=== PATIENT | female | born 1985 | race American Indian/Alaskan Native ===

== ENCOUNTER 2019-02-13 13:48 | Outpatient (CLI) | payer BC ==
--- NOTE | 2019-02-13 16:04 | Mammography Report ---
LEFT DIGITAL DIAGNOSTIC CLINICAL: For clip placement after ultrasound guided needle biopsy. COMPARISON: [facility] 01/29/2019 FINDINGS: A biopsy clip is identified in the upper outer quadrant [place] E 18 cm from the nipple and c orrelates with the biopsied lymph node. The breast is diffusely increased in density with marked diff use skin thickening. At least 2 axillary lymph nodes are partially included on the images. No other m ass. A few clustered calcifications in the upper breast with nonspecific morphology. IMPRESSION: Concordant clip deployment. Diffuse edema and skin thickening of the breast suggesting ei ther severe lymphedema or inflammatory breast carcinoma. Signer Name: Myke Alcantara MD Signed: 02/13/2019 4:00 PM Workstation Name: [id number]
--- NOTE | 2019-02-13 16:16 | Ultrasound Report ---
COMPLETE LEFT BREAST ULTRASOUND HISTORY: Left axillary lymphadenopathy and left breast enlargement. Abnormal mammogram. COMPARISON: [facility] FINDINGS: Complete sonographic evaluation including imaging of the four quadrants and subareolar aspe ct of the left breast was performed. No mass, cyst or shadowing. A grossly abnormal and enlarged lymp h node in the axillary tail at 1:00 14 cm from the nipple measures 3.4 x 2.2 x 1.7 cm. It has a small amount of central fat and pronounced cortical thickening measuring 16 mm maximum. Several abnormal l eft axillary lymph nodes have no central fat. IMPRESSION Left intramammary and left axillary lymphadenopathy which are suspicious for malignancy. No other mas s of the left breast. Recommend ultrasound-guided needle biopsy of the largest lymph node. BIRADS 4: Suspicious abnormality. Signer Name: Myke Alcantara MD Signed: 02/13/2019 4:12 PM Workstation Name: [id number]
--- NOTE | 2019-02-13 16:20 | Ultrasound Report ---
ULTRASOUND-GUIDED NEEDLE CORE BIOPSY LEFT BREAST WITH CLIP PLACEMENT CLINICAL: A grossly abnormal axillary tail lymph node, left breast enlargement and edema. FINDINGS: The procedure was explained to the patient and informed consent was obtained. Ultrasound demonstrated the previously identified 3.6 cm axillary tail lymph node with pronounced cor tical thickening. I marked the breast with a felt tip marker and a timeout was called. The skin was prepped with Chloro -Prep and anesthetized with 1% lidocaine. Needle core biopsy was performed through small dermatotomy using ultrasound guidance, 2% lidocaine wi th epinephrine for deep anesthesia and a 14-gauge Achieve biopsy device. 2 cores were obtained and pl aced in formalin. A clip was deployed within the lymph node. The patient tolerated the procedure well and there were no apparent convocations. Hemostasis was achieved with minimal effort and a sterile d ressing was applied. A post procedure mammogram demonstrated concordant clip deployment. She left the department in good c ondition and was given instructions for wound care and follow-up. IMPRESSION: Uncomplicated ultrasound guided needle core biopsy with clip placement left breast. Signer Name: Myke Alcantara MD Signed: 02/13/2019 4:16 PM Workstation Name: [id number]
== END 2019-02-13 13:49 | disposition home or self-care (01) ==
LOC: SPVWC 13:48
PROVIDERS: ATTEND Surgery
DX: C77.9 Secondary and unspecified malignant neoplasm of lymph node, unspecified (principal)
CPT/HCPCS: 38505; 76942; 88305; 88341; 88342

== ENCOUNTER 2019-02-21 08:25 | Outpatient (CLI) | payer BC | END 2019-02-21 08:26 | disposition home or self-care (01) | LOC: LABHHL 08:25 | PROVIDERS: ATTEND Surgery | DX: D48.7 Neoplasm of uncertain behavior of other specified sites (principal) | CPT/HCPCS: 88305; 88341; 88342 ==

== ENCOUNTER 2019-02-27 11:39 | Day surgery (SDC) | payer BC ==
[~2019-02-27 11:39] MED LIST: ANCEF/STERILE WATER 2 GM/20 ML 2 GM/20 ML SYRINGE IV NR; LACTATED RINGERS 1,000 ML IV SCH; NEURONTIN PO SCH; TYLENOL PO ONE
[2019-02-27 12:33] LABS: Eosinophils # (Auto) 0.1 K/mm3 (0.0-0.4); Eosinophils % (Auto) 0.9 % (0.0-4.3); Mean Corpuscular HGB Conc 35 % (30-34); Mean Corpuscular Volume 71 fl (79-97); Monocytes % (Auto) 8.8 % (0.0-7.3); Red Blood Count 2.33 M/mm3 (3.65-5.03)
[2019-02-27] MEDS ORDERED: SUBLIMAZE IV PRN (12:34)
--- NOTE | 2019-02-27 12:35 | Anesthesia Day of Surgery ---
Anesthesia Day of Surgery - Day of Surgery Patient Examined: Yes Patient H&P Reviewed: Yes Patient is NPO: Yes
--- NOTE | 2019-02-27 12:35 | Anesthesia Consultation ---
Anesthesia Consult and Med Hx Date of service: 02/27/19 - Airway Anesthetic Teeth Evaluation: Good ROM Head & Neck: Adequate Mental/Hyoid Distance: Adequate Mallampati Class: Class III Intubation Access Assessment: Possibly Difficult - Pulmonary Exam CTA: Yes - Cardiac Exam Cardiac Exam: RRR - Pre-Operative Health Status ASA Pre-Surgery Classification: ASA2 Proposed Anesthetic Plan: General - Pulmonary Hx Smoking: No Hx Respiratory Symptoms: No Hx Sleep Apnea: No (MEDHAT PRE SCREEN LOW RISK) - Cardiovascular System Hx Hypertension: No Hx Heart Attack/AMI: No - Central Nervous System CVA: No - Gastrointestinal Hx Gastroesophageal Reflux Disease: No - Endocrine Hx Renal Disease: No Hx Liver Disease: No Hx Insulin Dependent Diabetes: No Hx Non-Insulin Dependent Diabetes: No Hx Thyroid Disease: No - Hematic Hx Anemia: Yes - Other Systems Hx Cancer: Yes (Breast Ca; not yet on chemo)
[2019-02-27 12:40] LABS: Hematocrit 16.4 % (30.3-42.9); Hemoglobin 5.7 gm/dl (10.1-14.3); Platelet Count 68 K/mm3 (140-440); Red Cell Distribution Width 32.8 % (13.2-15.2)
[2019-02-27] MEDS ORDERED: NACL 0.9% 500 ML 500 ML IV ONE (12:48)
[2019-02-27] MEDS ORDERED: VERSED IV NR (13:00)
[2019-02-27] MEDS ORDERED: TYLENOL ONE (13:15)
[2019-02-27] MEDS ORDERED: NACL 0.9% 250ML 250 ML ONE (13:18)
[2019-02-27] MEDS ORDERED: HEPARIN 10,000 UNITS/10 ML ONE (13:18)
[2019-02-27] MEDS ORDERED: MARCAINE-EPI/PF 0.5%-1:200,000 INFILTRATI ONE (13:18)
[2019-02-27] MEDS ORDERED: XYLOCAINE 1% 20 mL ONE (13:18)
--- NOTE | 2019-02-27 13:30 | Short Stay Summary ---
Short Stay Documentation Date of service: 02/27/19 - History H&P: obtained from office - Allergies and Medications Current Medications: Allergies No Known Allergies Allergy (Verified 02/26/19 16:36) Home Medications Medication Instructions Recorded Confirmed Last Taken Type Ibuprofen [Motrin Ib] 200 mg PO PRN PRN 02/22/19 02/22/19 Unknown History Active Medications Celecoxib (Celebrex) 200 mg PO PREOP NR Stop: 02/27/19 23:59 Last Admin: 02/27/19 13:10 Dose: 200 mg Documented by: Fentanyl (Sublimaze) 50 mcg IV Q5MIN PRN PRN Reason: Pain , Severe (7-10) Gabapentin (Neurontin) 300 mg PO PREOP NIKIA Last Admin: 02/27/19 13:11 Dose: 300 mg Documented by: Lactated Ringer's (Lactated Ringers) 1,000 mls @ 100 mls/hr IV DIRECT NIKIA Last Admin: 02/27/19 13:10 Dose: 100 mls/hr Documented by: Cefazolin Sodium (Ancef/Sterile Water 2 Gm/20 Ml) 2 gm in 20 mls @ 80 mls/hr IV PREOP NR; Protocol Stop: 02/27/19 23:59 Midazolam HCl (Versed) 2 mg IV PREOP NR Stop: 02/27/19 23:59 - Physical exam General appearance: no acute distress Integumentary: no rash, no growths, no abnormal pigmentation HEENT: Atraumatic Lungs: Normal air movement Neurological: Normal speech - Brief post op/procedure progress note Date of procedure: 02/27/19 (dictation:[id number]) Pre-op diagnosis: left breast cancer Post-op diagnosis: same Procedure: US guided port placement IVF 400cc crystalloid 2 u PRBC min EBL Anesthesia: GETA Findings: normal anatomy Surgeon: REA THOMPSON Estimated blood loss: minimal Pathology: none Condition: stable - Hospital course Hospital course: uneventful. No reactions after blood transfusion in OR. Tachycardia resolved after transfusion. - Disposition Condition at discharge: Stable Disposition: DC-01 TO HOME OR SELFCARE Short Stay Discharge Plan Wound: open to air, keep clean and dry Additional Instructions: Post Operative Instructions No driving until cleared by surgeon. May shower tomorrow. Pat dry the wound or wounds. After surgery, start with a light diet. Consider having a liquid diet first. If you do well, you can advance to a regular diet as you feel comfortable. Apply an ice pack to the wound or wounds for 10-20 minutes at a time. Do this at least 4-5 times a day. You can do it more if he would like. Alternate the use of ibuprofen and Tylenol for the first 2 days. I want you to take these on a scheduled basis. Take 600 mg of ibuprofen every 6 hours. Take 500 mg of Tylenol every 6 hours. You should alternate these 2 medicines. In other words, beginning with the ibuprofen. After 3 hours, take the Tylenol. Keep alternating the 2 drugs every 3 hours. Do this on a scheduled basis for the first 2 days. After that, you can take them as needed. It is very important that you use the prescription pain medicine only for very severe pain. Do not take the prescription medicine before you try using the ibuprofen and Tylenol. We will call you in a couple of days to see how youre doing. If you have any questions or concerns, always feel free to call the clinic at any time. Follow up with: TEO PINA MD [Primary Care Provider] - 7 Days Forms: Outpatient [facility] Work/School Release Form Prescriptions: HYDROcodone/APAP 5-325 [[place] 5/325] 1 each PO Q6HR PRN #10 tablet PRN Reason: Pain , Severe (7-10)
[2019-02-27] MEDS ORDERED: SUBLIMAZE ONE (13:59)
[2019-02-27] MEDS ORDERED: DECADRON ONE (13:59)
[2019-02-27] MEDS ORDERED: ZOFRAN ONE (13:59)
[2019-02-27] MEDS ORDERED: ROBINUL ONE (13:59)
[2019-02-27] MEDS ORDERED: DIPRIVAN 10 MG/ML IV ONE (13:59)
[2019-02-27] MEDS ORDERED: XYLOCAINE MPF 2% ONE (13:59)
[2019-02-27] MEDS ORDERED: QUELICIN ONE (14:01)
[2019-02-27 14:33] LABS: Band Neutrophils # (Manual) 0.2 K/mm3; Basophils % (Manual) 0 % (0.0-1.8); Eosinophils % (Manual) 0 % (0.0-4.3); Hypochromasia 1+; Total Cells Counted 100
[2019-02-27 14:34] LABS: Anisocytosis 2+; Schistocytes 1+
[2019-02-27 14:38] LABS: Platelet Estimate Consistent w Auto
[2019-02-27] MEDS ORDERED: MARCAINE-EPI/PF 0.25%-1:200,000 INFILTRATI ONE (15:53)
[2019-02-27] MEDS ORDERED: XYLOCAINE 1% 20 mL INFILTRATI ONE (15:53)
[2019-02-27] MEDS ORDERED: KCL 10MEQ/100ML 0 MEQ/0 ML BAG IV ONE (16:08)
[2019-02-27] MEDS ORDERED: CALCIUM GLUCONATE IV ONE (16:11)
[2019-02-27] MEDS ORDERED: CALCIUM CHLORIDE IV ONE ×2 (16:15→16:21)
--- NOTE | 2019-02-27 16:58 | Fluoroscopy Report ---
FL central venous dev plct INDICATION / CLINICAL INFORMATION: POOR VENOUS ACCESS. COMPARISON: None available. FINDINGS: An AP view of the chest reveals a right jugular Port-A-Cath with the tip overlying the upper right at rium. There is no evidence of pneumothorax. The heart is enlarged. The lungs are clear. There is a le ft cervical rib. Fluoroscopy time: 20 seconds. Fluoroscopic images: 2. IMPRESSION: New right jugular Port-A-Cath with the tip overlying the right atrium. No evidence of pne umothorax. Signer Name: Addi Lara MD Signed: 02/27/2019 4:54 PM Workstation Name: [id number]
[2019-02-27] MEDS ORDERED: NORMODYNE IV ONE (17:09)
[2019-02-27] MEDS: NORMODYNE IV PRN ×2 (17:10→17:20)
[2019-02-27] MEDS ORDERED: APRESOLINE ONE (17:50)
[2019-02-27] MEDS ORDERED: APRESOLINE IV PRN (17:56)
[2019-02-27 18:06] VITALS: BP 146/77
--- NOTE | 2019-02-27 19:22 | Post Anesthesia Evaluation ---
- Post Anesthesia Evaluation Patient Participated: Yes Airway Patent: Yes Stable Respiratory Function: Yes Nausea/Vomiting: No Temp > 96.8F: Yes Pain Manageable: Yes Adequeate Hydration: Yes Anesthesia Complications: No
--- NOTE | 2019-02-28 12:37 | Operative Report ---
PREOPERATIVE DIAGNOSIS: Left breast cancer. POSTOPERATIVE DIAGNOSIS: Left breast cancer. PROCEDURES: 1. Insertion of tunneled centrally inserted central venous access device with subcutaneous port. 2. Ultrasound guidance for vascular access. ATTENDING PHYSICIAN: Huy Do MD ANESTHESIA: General. ESTIMATED BLOOD LOSS: Minimal. FLUIDS: 400 mL crystalloid, 2 units packed red blood cells. FINDINGS: Normal anatomy. IMPLANT: Smart Port. COMPLICATIONS: None. DISPOSITION: Stable, transferred to Recovery Room. INDICATIONS: This is a 33-year-old female who was recently diagnosed with breast cancer. The patient is assessed to be need for port placement. Procedure, risks, benefits were explained to the patient. Risks included but were not limited to infection, bleeding, pain, injury to surrounding structures, possible need for further procedures in the future. The patient understood and consented. On the day of surgery, preoperative labs were drawn, which showed a hemoglobin of 5.9. The patient had mild tachycardia, but was otherwise asymptomatic. I spoke with Dr. Rivera, the oncologist about this issue. He recommended that we transfuse blood today and have her follow up with him tomorrow. This was explained to the patient, she was in agreement. She had already consented for blood. Anesthesia planned to start the transfusion prior to starting the case. OPERATIVE NOTE: The patient was brought to the operating room and placed on the table in supine position. After adequate general anesthesia was established, anatomy was assessed with ultrasound. The right internal jugular vein appeared to be a very good target for its entire length. It was completely wide open, easily compressible. There were no filling defects, no clots were appreciated. The patient was assessed to be a good candidate for internal jugular catheter placement. Sterile prep and drape was performed. Towel roll was placed underneath the shoulders to extend the neck. SCDs were in place. Antibiotics have been given. Time-out was called. I began by identifying my insertion site with the ultrasound. The planned incision site was then anesthetized with 1% lidocaine and 0.5% Marcaine. Under ultrasound guidance, I watched the introducer needle go into the vein and I had easy aspiration of venous blood. Guidewire easily passed. We checked the position with fluoroscopy; it was in the right side of the heart. There was no ectopy. I then went to the planned site for the port. This area was anesthetized. Oblique incision was made along the lines of skin tension. Subcutaneous pocket was created. On the medial aspect, we did encounter some bleeding. I tried to control it with electrocautery. We ended up packing the wound. It was not distinct vessel bleeding. This area was eventually packed. I then anesthetized the planned tunneling site for the catheter with the tunneling trocar. I passed the catheter up to the neck. It went easily. We had no difficulties. There was no bleeding. Dilator and sheath were passed over the wire. It went very easily and then the wire and dilator were removed and catheter was inserted. Under fluoroscopy, we adjusted the length, so that it was approximately 2-3 vertebral bodies below the lamin. We then modified the length on the port site and connected to the port. I had very easy aspiration of blood and easy flushing. We checked the position again. Everything looked good. I secured the medial aspect of the port to the subcutaneous tissue with a 3-0 Vicryl stitch to try to minimize any rotation of the port. The medial aspect of the pocket was eventually packed with Surgicel as a precautionary measure as her platelets were only 60. I wanted to minimize risk of bleeding. The pocket and the packing had been open and in place for at least 5-10 minutes prior to closure. There was absolutely no evidence of any bleeding at this point, so I felt comfortable that we had good control of this area. Additional local was injected into the pocket area. The deep layer was closed with interrupted 3-0 Vicryl stitches. Skin was closed with 4-0 Monocryl subcuticular stitches. We had administered locking solution prior to closure. Skin was cleaned and dried. Dermabond was placed. The patient tolerated the procedure well. There were no complications. All counts were correct at the end of the case. Chest x-ray showed the tip of the catheter overlying the right atrium. There was no evidence of any complications or pneumothorax. JOB# [id number] ANI/ILEANA
== END 2019-02-27 11:40 | disposition home or self-care (01) ==
LOC: OR 11:39
PROVIDERS: ATTEND Surgery
DX: C50.912 Malignant neoplasm of unspecified site of left female breast (principal); Z79.899 Other long term (current) drug therapy; Z98.890 Other specified postprocedural states; Z86.2 Personal history of diseases of the blood and blood-forming organs and certain disorders involving the immune mechanism
CPT/HCPCS: 36415; 36430; 36561; 77001; 81025; 82803; 85007; 85025; 86850; 86900; 86901; 86920; C1788; J0330; J0360; J0610; J0690; J1100; J1644; J2405; J2704; J3010; J7040; J7050; J7120; P9016; J3480